=== PATIENT | female | born 1955 | race Asian ===

== ENCOUNTER 2017-10-08 05:46 | Day surgery (SDC) | payer OTHER ==
[2017-10-08] MEDS ORDERED: MIDAZOLAM 1 MG/ML 2 ML INJ (07:42)
[2017-10-08] MEDS ORDERED: FENTAnyl 50 MCG/ML VIAL (07:42)
== END 2017-10-08 09:22 | disposition home or self-care (01) ==
LOC: GIL 05:46
DX: K29.70 Gastritis, unspecified, without bleeding (principal); E11.9 Type 2 diabetes mellitus without complications; E78.5 Hyperlipidemia, unspecified
CPT/HCPCS: 43239; 82962; 88305; 88312